=== PATIENT | female | born 1975 | race Caucasian/White ===

== ENCOUNTER 2023-11-03 16:21 | Inpatient (IN) | payer OTHER, SELFPAY ==
[2023-11-03] VITALS (10 sets, daily range): BP systolic 118–170; BP diastolic 85–103; BMI 50.3; BMI 49.7
--- NOTE | 2023-11-03 10:01 | ED.GENMED ---
History of Present Illness
General
Chief Complaint: Breathing Problem
Source: patient
Exam Limitations: none
Time Seen by Provider: 11/03/23 09:51
History of Present Illness
History of Present Illness:
48-year-old female presents with worsening congestion over 2 weeks but started to feel worse in the way of her illness about 4 days ago with significant congestion in her face and chest. She is coughing now. She has a history of asthma. She also
has a history of seasonal allergies. She has been taking Mari and a double dose of this as well as Mucinex without relief. She is concerned as she also has had pneumonia in the past. She took a COVID test at home which was negative. No other
complaints
Past History
Past History
ED Past Medical History: Asthma and Other (eczema)
Social History
Tobacco: Smoker
Personal:
Employment: Employed
Phy Exam
Physical Exam
Physical Exam:
General: HEENT: Normocephalic atraumatic. Neck is supple. Posterior pharynx without erythema or exudate TMs normal. Mucosa dry.
Heart: Tachycardic but regular
Lungs: Crackles at the bases bilaterally
Abdomen soft nontender
Extremities: No cyanosis or edema
Scores
Heart Failure Risk
Heart Failure Risk Score: Not Applicable
Course
Orders/Labs/Results
Orders:
Orders
11/03/23 10:01
0.9% Sodium Chloride 1000 ml [Nss] 1,000 ml IV BOLUS
Ipratropium/Albuterol Sulfate [Duoneb] 3 ml INH R NOW STA
CR Chest - 2 Views Urgent
Comment:
Reason For Exam: cough, sob
11/03/23 10:33
Complete Blood Count/With Diff Urgent
Comprehensive Metabolic Panel Urgent
11/03/23 13:52
COVID-19 Antigen Urgent
Source: Nasal Swab
11/03/23 14:36
Azithromycin 500 mg/250 ml [Zithromax Infusion] 500 mg in 250 ml IV NOW
CefTRIAXone [Rocephin] 1,000 mg IV NOW STA
Abnormal Lab Results
11/03/23
10:33
Hct 36.9 L %
(37.0-47.0)
MCV 77.7 L fL
(81.0-99.0)
MCH 26.5 L pg
(27.0-31.0)
RDW 14.6 H %
(11.5-14.5)
Abs Immat Gran (auto) 0.1 H 10^3/uL
(0-0.05)
Absolute Neuts (auto) 7.9 H 10^3/uL
(1.4-6.5)
Absolute Monos (auto) 1.0 H 10^3/uL
(0.1-0.6)
Immature Gran % 1.3 H %
(0-0.5)
Lymphocytes % 14.6 L %
(20.5-51.1)
Monocytes % 9.7 H %
(1.7-9.3)
Potassium 3.3 L mmol/L
(3.5-5.1)
Glucose 145 H mg/dl
(70-99)
Total Bilirubin 1.8 H mg/dl
(0.2-1.3)
11/03/23 10:33
11/03/23 10:33
Vital Signs
Initial and Last Documented VS:
Initial Vital Signs
Temp Pulse Resp BP Pulse Ox
98.7 F 120 24 158/103 93
11/03/23 09:19 11/03/23 09:19 11/03/23 09:19 11/03/23 09:19 11/03/23 09:19
Last Documented Vital Signs
Temp Pulse Resp BP Pulse Ox
98.7 F 106 27 161/88 88
11/03/23 09:19 11/03/23 13:01 11/03/23 13:01 11/03/23 13:01 11/03/23 13:01
MDM/Problems Addressed
Differential Diagnosis Includes:
Patient with cough congestion fatigue. Question upper respiratory infection versus pneumonia versus bronchitis
COVID test at home was negative.
Will check labs. Hydrate DuoNeb ordered chest x-ray pending
*Critical Care Note
Total Time (30-74mins, 75-104mins- exclusive of procedures): Not Applicable
Update Note
Update Note:
Chest x-ray performed reviewed without obvious consolidation however there are rales at the bases clinically. Patient is hypoxic here throughout her stay. She is requiring 2 L of nasal cannula oxygen. She is here with cough shortness of breath
fatigue and sweats. She has a history pneumonia. Clinically I suspect pneumonia again. Rocephin and Zithromax ordered DuoNeb ordered
ED Attending Note
-
Portions of this chart may have been created with voice recognition software.� Occasional wrong word or��sound alike� substitutions may have occurred due to the inherent limitations of voice recognition software.
Discharge Plan
Departure
Patient Disposition: Admit
Date of Disposition: 11/03/23
Time of Disposition: 14:40
Admit to: Telemetry
Presentation/result/management discussed w/ accepting MD/DO: Hospitalist
Discharge Problem:
Pneumonia
Prescriptions:
No Action
clindamycin HCl 300 MG capsule
300 mg PO QID Qty: 20 0RF
clindamycin HCl 300 MG capsule
300 mg PO TID Qty: 30 0RF
hydroxyzine HCl 25 MG tablet
25 mg PO QIDPRN PRN (Reason: itching) Qty: 12 0RF
mupirocin 1 APPLIC ointment
1 applic topical TID Qty: 15 0RF
Referrals:
Jennifer Justin MD [Family Provider] -
Interventions
Interventions:
*General Assessment Last Done: 11/03/23 11:03
*Neglect/Abuse Screening Last Done: 11/03/23 11:03
ED- Fall Risk Assessment Last Done: 11/03/23 11:03
*ED COVID-19 Vaccine History Last Done: 11/03/23 11:03
ED- Cardiac Assessment Last Done: 11/03/23 11:03
ED- Pulmonary Assessment Last Done: 11/03/23 11:03
Discharge Date and Time
Print Language: MOSOTHO
[2023-11-03] MEDS: DUONEB 3 ML INH ×4 (10:25→23:23)
[2023-11-03] MEDS: NSS 1000 IV (10:27)
[2023-11-03 10:49] LABS: % Basophils 0.4 % (0-2); % Eosinophils 0.7 % (0-6); % Immature Granulocytes 1.3 % (0-0.5); % Lymphocytes 14.6 % (20.5-51.1); % Monocytes 9.7 % (1.7-9.3); % Neutrophils 73.3 % (42.2-75.2); Absolute Eosinophils 0.1 10^3/uL (0-0.7); Absolute Immature Granulocytes 0.1 10^3/uL (0-0.05); Absolute Lymphocytes 1.6 10^3/uL (1.2-3.4); Absolute Neutrophils 7.9 10^3/uL (1.4-6.5); Hematocrit 36.9 % (37.0-47.0); Hemoglobin 12.6 g/dL (12.0-16.0); Mean Corp Hgb Conc. 34.1 g/dL (33.0-37.0); Mean Corpuscular Hgb 26.5 pg (27.0-31.0); Mean Corpuscular Volume 77.7 fL (81.0-99.0); Mean Platelet Volume 9.9 fL (7.4-10.4); Nucleated Red Blood Cells % 0 %; Platelet Count 256 10^3/uL (130-400); Red Blood Cell Count 4.75 10^6/uL (4.20-5.40); Red Cell Dist. Width 14.6 % (11.5-14.5); White Blood Cell Count 10.7 10^3/uL (4.8-10.8)
[2023-11-03 11:13] LABS: ALT (SGPT) 27 U/L (0-35); AST (SGOT) 34 U/L (14-36); Albumin 3.7 g/dl (3.5-5.0); Alkaline Phosphatase 55 U/L (38-126); Blood Urea Nitrogen 9 mg/dl (7-17); Calcium 9.1 mg/dl (8.4-10.2); Carbon Dioxide 25 mmol/L (22-30); Chloride 101 mmol/L (98-107); Estimated Creatinine Clearance > 125 ml/min; Glucose 145 mg/dl (70-99); Potassium 3.3 mmol/L (3.5-5.1); Sodium 137 mmol/L (135-145); Total Bilirubin 1.8 mg/dl (0.2-1.3); Total Protein 6.3 g/dl (6.3-8.2); eGFR > 60.00
[2023-11-03 14:24] LABS: COVID-19 Antigen Negative (Negative)
--- NOTE | 2023-11-03 14:45 | W.PN.UPDATE ---
Update Note
Progress Note Update
I personally performed a history and physical exam of the patient and discussed management with the resident. I reviewed the resident's note and agree with the documented findings and plan of care HPI/CC.
48F with PMH of asthma, morbid obesity, tobacco abuse came to ER with new onset of shortness breath and dry cough. Patient reported to have diagnosis of asthma and has not been following up with pulmonology. Patient reports of having yearly
episodes of flareup. Currently not using any inhaler therapy. Patient is current smoker and has not been smoking for last 7 days due to ongoing allergy/feeling sick. Patient noted to having slowly developing shortness of breath and got worse, dry
cough no phlegm. No reported fever. Noted to be tachycardic in ER although denies palpitations/chest pain/dizziness/presyncope.
HEENT: No pallor, cyanosis, or jaundice. Throat clear.
NECK: Supple. No JVD.
RESPIRATORY: decreased bilateral air entry, no wheezing
CVS: S1, S2 normal. RRR. No murmur, rub or gallop.
ABDOMEN: Soft, non-tender. No distension. BS+/normal.
EXTREMITIES: No peripheral cyanosis or edema.
MILK RUNNER: AOx3. No focal deficits.
Asthma Flare up
Acute hypoxic resp insufficiency
-Was having some seasonal allergies for last 2 weeks
-Have shortness of breath/borderline hypoxia and dry cough.
-CXR showed no pneumonia.
-no leukocytosis, afebrile.
-Not much air movement on exam
-will treat for asthma flare up, start on IV Decadron 4mg q8h
-Patient got dose of Rocephin and azithromycin in ER, continue on Zithromax
-Maintain on duoneb inh therapy
-Pulmonology evaluation will be required
Tobacco use
-didnt smoke for last 7 days
-smoking cessation advised
-nicotine patch/Nicorette suggested to help craving, declined
Sinus tachycardia
-asthma flare up related. monitor
-further testing if not improved post asthma rx
DVT PPX - lovenox
Full code
[2023-11-03] MEDS: ROCEPHIN 1000 MG IV (14:59)
[2023-11-03] MEDS: ZITHROMAX INFUSION 250 IV (14:59)
--- NOTE | 2023-11-03 16:40 | HPS.HSE ---
Family Physician
-
Family Physician: Jennifer Justin
Chief Complaint
-
Shortness of breath, cough
History of Present Illness
48-year-old female, Ms. Shawna Reynaga with past medical history significant for asthma, morbid obesity, tobacco use presented to the ER reporting shortness of breath and nonproductive cough that has been ongoing from the past 2 weeks, has been using
Mari/Mucinex as needed, thinking that her symptoms are due to seasonal allergies. Patient reports that SOB is more positional, patient notices and happens frequently when she lies down on bed. The symptoms have worsened since the past 4 days
requiring her to increase the frequency of using Mari, Mucinex. Patient reports that she has a history of asthma for which she carries albuterol inhaler as needed, but never required to use it in the past 1 year. Patient is a current smoker,
smokes 1 pack of cigarettes/week and she has stopped using since onset of symptoms. No history of fever/chills, lightheadedness, chest pain, palpitations, nausea/vomiting, abdominal pain, recent exposure to sick contacts, travel history,
bladder/bowel disturbances. Patient also reports having heaviness in the head/headaches. Patient reports she took a COVID test at home which was negative.
Medical History
Past Medical History
Past Medical History: Reports Asthma and Other (PCOS, GERD)
Past Surgical History: Reports Other (Ankle surgeries, ACL repair bilateral knees, endometriosis ablation, D&C,)
Social History
Tobacco: Smoker (1 pack of cigarettes/week)
Alcohol: Occasional
Drug: None
Personal:
Living: With Family
Family History
Family History: Asthma
Allergies / Home Medications
Allergies reflects when Allergies were last updated in [employer].
Home Medications with original date entered in [employer]
Allergy/Medication List:
Allergies
Allergy/AdvReac Type Severity Reaction Status Date / Time
ketorolac tromethamine Allergy Unknown Verified 11/03/23 09:21
[From Toradol]
Home Medications
fexofenadine 60 mg tablet 60 mg PO BID Allergies 11/03/23
guaifenesin 600 mg tablet, extended release 12 hr (Mucinex) 600 mg PO BID Congestion 11/03/23
Review of Systems
-
A 12 point ROS was completed and negative except as noted: Yes
Physical Exam
Vital Signs
Vital Signs
Temp Pulse Resp BP Pulse Ox
98.5 F 108 24 160/91 94
11/03/23 15:21 11/03/23 15:21 11/03/23 15:21 11/03/23 15:21 11/03/23 15:21
Physical Exam
General: Morbidly Obese and Other (Patient is on 2 L nasal cannula)
HEENT: NormoCephalic and Anicteric
Respiratory: Wheezes and Crackles
Cardiac: S1/S2, Regular Rhythm and Tachycardia
GI: Soft, Non Tender, Non Distended and Normal Bowel Sounds
Musculoskeletal: Other (Adhesive knee strap for stabilizing patella on the left side.)
Skin: Warm and Dry
Neuro: Awake, Alert, Oriented and AO x 3
Laboratory Results
-
11/03/23 10:33
11/03/23 10:33
Laboratory Results
Total Bilirubin 1.8 mg/dl (0.2-1.3) H 11/03/23 10:33
AST 34 U/L (14-36) 11/03/23 10:33
ALT 27 U/L (0-35) 11/03/23 10:33
Alkaline Phosphatase 55 U/L (38-126) 11/03/23 10:33
Data Reviewed
-
Diagnostic Radiology: Image Personally Visualized and interpreted and Report Reviewed by me
Impression/Plan
-
IMPRESSION:
Acute hypoxemic respiratory insufficiency
Tobacco use
Elevated blood pressure at presentation
PLAN:
#Acute hypoxemic respiratory insufficiency
Patient is on 2 L nasal cannula, O2 saturation at 94%.
Differentials might be acute asthma flare versus bronchitis versus pneumonia versus COPD versus viral URI
Chest x-ray revealed no evidence of pneumonia
Patient is afebrile, no elevated white count.
Patient was given a dose of Rocephin, azithromycin in ER
Continue azithromycin
Start DuoNebs
Start Symbicort
Solu-Medrol 40 mg, Q8
Pulmonology consult
#Tobacco use
Patient reports that she has not smoked from the last 7 days
Advised smoking cessation
Recommended nicotine patch/Nicorette gum�patient refused
#Elevated blood pressure at presentation
Blood pressure at 160/91
Patient is asymptomatic
Monitor
DVT prophylaxis�Lovenox 40 mg subcu
Full code
--- NOTE | 2023-11-03 18:13 | PTCARENOTE ---
Admitted into room 414-2. AOx3. CONCEPCION. SaO2 low-mid 90s on 3L NC. Sinus tachycardia on telemetry, HR 110-120s. Hypertensive, 170/97, and temperature 100.5. Dr. Lal aware. Orders received for prn hydralazine and tylenol, see MAR. Updated patient on
plan of care.
[2023-11-03] MEDS: TYLENOL 650 MG PO (18:40)
[2023-11-03] MEDS: APRESOLINE 10 MG IV (18:40)
[2023-11-03] MEDS: DECADRON 4 MG IV (18:41)
[2023-11-03] MEDS: LOVENOX 40 MG SC (18:41)
--- NOTE | 2023-11-03 18:41 | W.PN.UPDATE ---
Update Note
Progress Note Update
Patient developed fever�100.5. Started Tylenol 650 mg as needed.
Patient also had elevated blood pressure readings ranging from 170/97 to 155/85. Started on hydralazine 10 mg, q6, as needed.
[2023-11-03 19:06] LABS: Procalcitonin < 0.05 ng/ml (0.0-0.25)
[2023-11-03] MEDS: SYMBICORT 160/4.5 MCG INHALER 2 PUFF INH (19:54)
[2023-11-03] MEDS: MUCINEX 600 MG PO (20:34)
[2023-11-03] MEDS: SOLU-MEDROL PF 40 MG IV (23:51)
[2023-11-04 03:21] VITALS: BP 158/98
[2023-11-04] MEDS: DUONEB 3 ML INH ×6 (03:29→23:14)
[2023-11-04 07:00] VITALS: BP 140/89
[2023-11-04] MEDS: SYMBICORT 160/4.5 MCG INHALER 2 PUFF INH ×2 (07:13→19:44)
[2023-11-04 09:04] LABS: Hematocrit 36.8 % (37.0-47.0); Hemoglobin 12.4 g/dL (12.0-16.0); Mean Corp Hgb Conc. 33.7 g/dL (33.0-37.0); Mean Corpuscular Hgb 26.6 pg (27.0-31.0); Mean Platelet Volume 9.9 fL (7.4-10.4); Platelet Count 285 10^3/uL (130-400); Red Blood Cell Count 4.66 10^6/uL (4.20-5.40); Red Cell Dist. Width 14.9 % (11.5-14.5); White Blood Cell Count 11.5 10^3/uL (4.8-10.8)
--- NOTE | 2023-11-04 09:22 | CON.PUL ---
Consultation
Consultation Request
Date/Time Consultation Requested: 11/03/2023 - 1741
Date/Time Consultation Performed: 11/04/2023 - 857
Requesting Provider: Dr. Gena Yip
Performing Provider: Dr. Bustillos
Reason for Consultation: Asthma exacerbation/SOB
Medical History
-
Chief Complaint: SOB
History of Present Illness:
48-year-old female active tobacco smoker with a past medical history of asthma, GERD, + PCOS who presents with shortness of breath + cough x 2 days. She has tried OTC medications like Mucinex and allergy medications without relief. No fever
reported. Initial vitals in the ER showed she was afebrile to 98.7 �F, tachycardic to 120, tachypneic 24 beats minute, BP 158/103 and saturating 93% on room air. Labs showed normal WBC at 10.7, Hb 12.6, potassium 3.3, T. bili elevated at 1.8, and
COVID antigen negative. CXR showed no acute cardiopulmonary process. She was given ceftriaxone/Zithromax in the ER, IVF with NS 0.9% x 1L and DuoNebs. She was admitted to the hospitalist service and pulmonary consulted for additional
management/recommendations.
When I saw the patient she was in bed, in no acute distress, saying she feels much better since being hospitalized. She is on 2 L/min nasal cannula. She currently is smoking 0.5 PPD, and is now motivated to stop smoking. She currently denies
chest pain, MYERS, abdominal pain, fevers or chills.
PMHx: History of asthma, GERD, PCOS, retroverted uterus
PSHx: Knee surgery x6 (3x on left, 3x on right), right ankle surgery, D&C, endometriosis ablation
Past Medical History
Past Medical History: Other (Above as per HPI)
Past Surgical History: Other (Above as per HPI)
Social History
Tobacco: Smoker (Smoking on and off for the past ~30 years; has about 64-nbmr-akps Hx (0.5PPD x 20 years))
Alcohol: None
Drug: None
Living: With Family
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
Family History
Family History: Reviewed & Not Pertinent
Allergies / Home Medications
Allergies
Allergy/AdvReac Type Severity Reaction Status Date / Time
ketorolac tromethamine Allergy Unknown Verified 11/03/23 09:21
[From Toradol]
Home Medications
�Medication �Instructions �Recorded �Confirmed �Last Taken �Type
fexofenadine 60 mg tablet 60 mg PO BID Allergies 11/03/23 11/03/23 11/03/23 08:00 History
guaifenesin 600 mg tablet, 600 mg PO BID Congestion 11/03/23 11/03/23 11/03/23 History
extended release 12 hr (Mucinex)
Review of Systems
-
History Source: Patient
All other systems: Negative unless noted (12 point ROS performed and is negative unless mentioned above.)
Vitals / Labs / Diagnostic Testing
Vital Signs
Temp Pulse Resp BP Pulse Ox
97.7 F 110 18 141/84 95
11/04/23 11:00 11/04/23 11:11 11/04/23 11:11 11/04/23 11:00 11/04/23 11:11
Lab Data
11/04/23 08:49
11/04/23 08:49
Diagnostic Testing:
Physical Exam
-
HEENT: Normocephalic, Anicteric and Moist Mucous Membranes
Cardiovascular: S1/S2, Peripheral Edema (negative) and Other (Tachycardic)
Respiratory: Wheeze (negative), Rales (Bibasilar), Rhonchi and Accessory Resp Muscle Use (negative)
GI: Soft, Distended (Abdominal obesity), Non Tender and Normal Bowel Sounds
Neurology: AO x 3 and Tremors (negative)
Skin: Warm and Dry
General: Respiratory Distress (negative), Comfortable, Chills (negative) and Sweats (negative)
Assessment
-
Assessment: 48-year-old female active tobacco smoker with a past medical history of asthma, GERD, + PCOS who presents with shortness of breath + cough x 2 days. She has tried OTC medications like Mucinex and allergy medications without relief. No
fever reported. Initial vitals in the ER showed she was afebrile to 98.7 �F, tachycardic to 120, tachypneic 24 beats minute, BP 158/103 and saturating 93% on room air. Labs showed normal WBC at 10.7, Hb 12.6, potassium 3.3, T. bili elevated at
1.8, and COVID antigen negative. CXR showed no acute cardiopulmonary process. She was given ceftriaxone/Zithromax in the ER, IVF with NS 0.9% x 1L and DuoNebs. She was admitted to the hospitalist service and pulmonary consulted for additional
management/recommendations.
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
Impression:
#SOB + cough with suspected asthma exacerbation
#Acute respiratory failure with hypoxia on supplemental oxygen due to above
#Tachycardia due to above in the setting of hypoxia
#Bibasilar atelectasis
#Active tobacco use disorder with 90-esfr-xghq history (0.5 PPD x 20 years)
#Hyperglycemia
#Mildly elevated right hemidiaphragm
Plan:
- Continue with systemic steroids and wean as tolerated - currently on SoluMedrol 40mg IV q8hr
-While on systemic steroids, maintain euglycemia with goal BG >100 and <180
- Check HbA1C
- Continue LABA/ICS with Symbicort 160mcg with DuoNebs q4hr --> can change to QID today to allow pt to sleep at night
- Would add prn DuoNebs for breakthrough symptoms
- Mucolytics with mucinex
- Currently on zithromax - unclear if this is needed - would give 1.5g total and then stop
- Maintain SpO2 >90-94% with supplemental O2 - wean as tolerated
- Incentive spirometer encouraged 10x/hr for at least 4 hours a day
- Replete electrolytes with K>4, Mg>2
- Recommend outpatient follow-up with consideration of Sniff test to further evaluate elevated right hemidiaphragm
- DVT ppx: LMWH
Pulmonary service will continue to follow along. Outpatient follow-up will also be arranged for full PFTs and maintenance of her asthma.
Data:
CXR 11/03/2023: No radiographic evidence for pneumonia, pleural effusion or acute pulmonary edema. Mild elevation of the anterior right hemidiaphragm
Total time spent today was 55 minutes for this encounter. Time includes reviewing laboratory test/imaging results, reviewing pertinent medical records, obtaining and reviewing medical history, performing an appropriate exam, ordering medications,
tests and procedures. Time also includes documentation of this encounter, coordinating patient care and communicating with other healthcare professionals. Total time does not include separately billed tests performed on this date of service.
[2023-11-04] MEDS: SOLU-MEDROL PF 40 MG IV ×3 (09:26→23:24)
[2023-11-04] MEDS: MUCINEX 600 MG PO ×2 (09:26→19:45)
[2023-11-04] MEDS: PROCARDIA XL (EXTENDED RELEASE) 30 MG PO (09:26)
[2023-11-04] MEDS: ZITHROMAX 500 MG PO (09:26)
[2023-11-04 09:40] LABS: ALT (SGPT) 31 U/L (0-35); AST (SGOT) 33 U/L (14-36); Albumin 3.9 g/dl (3.5-5.0); Alkaline Phosphatase 62 U/L (38-126); Blood Urea Nitrogen 12 mg/dl (7-17); Calcium 9.5 mg/dl (8.4-10.2); Carbon Dioxide 24 mmol/L (22-30); Chloride 103 mmol/L (98-107); Estimated Creatinine Clearance > 125 ml/min; Glucose 193 mg/dl (70-99); Potassium 3.7 mmol/L (3.5-5.1); Sodium 140 mmol/L (135-145); Total Bilirubin 1.1 mg/dl (0.2-1.3); Total Protein 6.7 g/dl (6.3-8.2); eGFR > 60.00
[2023-11-04 11:00] VITALS: BP 141/84
--- NOTE | 2023-11-04 13:18 | W.PN.UPDATE ---
Update Note
Progress Note Update
I saw and evaluated the patient. I reviewed the resident�s note and agree with findings and plan as documented in the resident�s note.
Patient feeling subjectively better
O2 requirement stable and on 2-3L o2 through NC
HR remains fast.
Asthma Flare up
Acute hypoxic resp insufficiency
-Was having some seasonal allergies for last 2 weeks
-Have shortness of breath/borderline hypoxia and dry cough.
-CXR showed no pneumonia.
-no leukocytosis, afebrile.
-Not much air movement on exam in ER. subjectively better today. Provide IS.
-Patient got dose of Rocephin and azithromycin in ER, continue on Zithromax for any URTI/Bronchitis as cause of asthma flare up.
-Maintain on duoneb inh therapy
-Currently on solumedrol 40mg q8h , continue today.
-Pulmonology evaluation will be required
Tobacco use
-didnt smoke for last 7 days
-smoking cessation advised
-nicotine patch/Nicorette suggested to help craving, declined
Sinus tachycardia
-asthma flare up related. monitor
-further testing if not improved post asthma rx
Elevated BP
-no formal dx of Essential HTN, with obesity suspecting probably true dx
-avoid BB with ongoing asthma flare up
-Procardia added for BP control , will require further dose increment based on clinical response.
DVT PPX - lovenox
Full code
Total time spent : 53 mins
--- NOTE | 2023-11-04 14:49 | W.PN.HOSP.TC ---
Today's Communication/Plan
-
continue solumedrol of 40 mg q8h
f/u with pulmonology consult
Assessment / Plan
Assessment / Plan
1. Acute hypoxic respiratory failure secondary to Asthma flare up
- Patient still has coughing but reports no SOB or dyspnea
- Patient has bilateral wheezing heard on pulmonary auscultation
- On 3L of of O2 through NC
- Continue on solumedrol 40 mg, duoneb, symbicort, and mucinex
- Pulmonology consult placed 11/02- pending
2. Hypertension
- Bp was elevated above 140/90 since today morning (11/03)
- No previous history of essential hypertension
- Nifedipine 30 mg ER added
3. Tobacco use:
- declined nicotine treatment to help cessation
Anticipated Discharge: 24 - 48 hours
Subjective/Interval History
-
Date of Service: November 04, 2023
Patient reports feeling much better. Still has trouble expectorating phlegm. Last night developed a fever of 100.8, so started on tylenol 650 as needed. BP last night was elevated so hydralazine 10 mg q6 was given.
Objective Data
-
Labs:
Laboratory Results
11/04/23
08:49
WBC 11.5 H
Hgb 12.4
Hct 36.8 L
Plt Count 285
Sodium 140
Potassium 3.7
Chloride 103
Carbon Dioxide 24
BUN 12
Creatinine 0.6
Glucose 193 H
Calcium 9.5
Total Bilirubin 1.1
AST 33
ALT 31
Alkaline Phosphatase 62
Vital Signs:
Vital Signs
Temp Pulse Resp BP Pulse Ox
97.7 F 110 18 141/84 95
11/04/23 11:00 11/04/23 11:11 11/04/23 11:11 11/04/23 11:00 11/04/23 11:11
I&O
11/03/23 11/04/23 11/05/23
06:59 06:59 06:59
Intake Total 480 / 480
Balance 480 / 480
Review of Systems
-
History Source: Patient
Respiratory: Reports Cough
Physical Exam
-
General: Well Developed and Obese
HEENT: Normocephalic and Atraumatic
Respiratory: Wheezes (b/L)
Cardiac: S1/S2
GI: Soft, Nontender and Nondistended
Skin: Warm and Dry
Neuro: Awake, Alert and Oriented
Psych: Calm
Data Reviewed
-
Labs: Labs Reviewed by me and Discussed with Physician
--- NOTE | 2023-11-04 14:53 | CM ---
Patient seen bedside, initial assessment completed. Patient resides with her and daughter in a two story home, no steps to enter. Patient denies DME, VN, or SNF history. Patient currently on O2, is not on home O2. Patient PCP Jennifer Justin,
pharmacy [facility] in [place], confirms prescription coverage. Patient inquiring about a nebulizer, will TT Hospitalist for script upon discharge. CM will continue to follow for all discharge planning needs.
Plan; home no needs likely, will need script for nebulizer upon discharge.
[2023-11-04 15:52] VITALS: BP 157/99
[2023-11-04] MEDS: LOVENOX 40 MG SC (17:20)
[2023-11-04 19:30] VITALS: BP 152/86
[2023-11-04 23:30] VITALS: BP 140/83
[2023-11-05 03:30] VITALS: BP 146/86
[2023-11-05 06:44] LABS: Hematocrit 34.6 % (37.0-47.0); Hemoglobin 11.8 g/dL (12.0-16.0); Mean Corp Hgb Conc. 34.1 g/dL (33.0-37.0); Mean Corpuscular Hgb 27.6 pg (27.0-31.0); Mean Platelet Volume 10.4 fL (7.4-10.4); Platelet Count 337 10^3/uL (130-400); Red Blood Cell Count 4.27 10^6/uL (4.20-5.40); Red Cell Dist. Width 15.1 % (11.5-14.5); White Blood Cell Count 15.7 10^3/uL (4.8-10.8)
[2023-11-05 07:05] VITALS: BP 164/85
[2023-11-05] MEDS: SYMBICORT 160/4.5 MCG INHALER 2 PUFF INH ×2 (07:25→19:24)
[2023-11-05] MEDS: DUONEB 3 ML INH ×5 (07:25→23:29)
[2023-11-05 07:31] LABS: ALT (SGPT) 40 U/L (0-35); AST (SGOT) 38 U/L (14-36); Albumin 3.6 g/dl (3.5-5.0); Alkaline Phosphatase 60 U/L (38-126); Blood Urea Nitrogen 19 mg/dl (7-17); Calcium 9.8 mg/dl (8.4-10.2); Carbon Dioxide 24 mmol/L (22-30); Chloride 105 mmol/L (98-107); Estimated Creatinine Clearance > 125 ml/min; Glucose 219 mg/dl (70-99); Magnesium 2.2 mg/dl (1.6-2.3); Phosphorus 4.6 mg/dl (2.5-4.5); Potassium 4.2 mmol/L (3.5-5.1); Sodium 139 mmol/L (135-145); Total Bilirubin 0.6 mg/dl (0.2-1.3); Total Protein 6.2 g/dl (6.3-8.2); eGFR > 60.00
[2023-11-05 07:56] LABS: Glucose - Point of Care 243 mg/dl (70-99)
[2023-11-05] MEDS: NOVOLOG FLEXPEN-LOW RESISTANCE 2 UNITS SC ×2 (08:35→12:49)
[2023-11-05] MEDS: SOLU-MEDROL PF 40 MG IV ×3 (08:36→23:10)
[2023-11-05] MEDS: ZITHROMAX 500 MG PO (08:37)
[2023-11-05] MEDS: PROCARDIA XL (EXTENDED RELEASE) 30 MG PO ×2 (08:39→19:34)
[2023-11-05] MEDS: MUCINEX 600 MG PO ×2 (08:39→19:34)
--- NOTE | 2023-11-05 10:07 | W.PN.PUL3 ---
Today's Communication / Plan
-
Start weaning steroids tomorrow to 40mg IV q12hr
Up OOB as tolerated
Continue Acapella which she seems to like and helps her bring up her phlegm
Encourage use of incentive spirometer
PT consult
Keep SpO2 >90-94% --> check walking pulse ox prior to discharge as she is saturating 91% at rest and is at risk of desaturation with activity
Recommend her to get a pulse oximeter for home use for continued O2 monitoring
Outpatient follow up will be arranged for full PFTs +/- 6MWT and continued management of her asthma
Tobacco cessation is imperative
Pulmonary service to continue to follow along
Assessment
-
Assessment: 48-year-old female active tobacco smoker with a past medical history of asthma, GERD, + PCOS who presents with shortness of breath + cough x 2 days. She has tried OTC medications like Mucinex and allergy medications without relief. No
fever reported. Initial vitals in the ER showed she was afebrile to 98.7 �F, tachycardic to 120, tachypneic 24 beats minute, BP 158/103 and saturating 93% on room air. Labs showed normal WBC at 10.7, Hb 12.6, potassium 3.3, T. bili elevated at
1.8, and COVID antigen negative. CXR showed no acute cardiopulmonary process. She was given ceftriaxone/Zithromax in the ER, IVF with NS 0.9% x 1L and DuoNebs. She was admitted to the hospitalist service and pulmonary consulted for additional
management/recommendations.
Chronic conditions YARDER: History of asthma, seasonal allergies treated with Mari, GERD, PCOS, retroverted uterus, tobacco use disorder
Impression:
#SOB + cough with due to asthma exacerbation
#Acute respiratory failure with hypoxia due to above - improved, and she is now on room air
#Tachycardia due to above in the setting of hypoxia
#Bibasilar atelectasis
#Active tobacco use disorder with [id number] history (0.5 PPD x 20 years)
#Hyperglycemia
#Mildly elevated right hemidiaphragm
Plan:
- Continue with systemic steroids and wean as tolerated - currently on SoluMedrol 40mg IV q8hr
- While on systemic steroids, maintain euglycemia with goal BG >100 and <180
- Can wean down to 40mg IV q12hr tomorrow
- HbA1C: 6.2
- Continue LABA/ICS with Symbicort 160mcg with DuoNebs QID
- Continue prn DuoNebs for breakthrough symptoms
- Mucolytics with mucinex
- Nicotine patch offered, patient refused
- Tobacco cessation strongly reinforced today; discussed nicotine replacement therapy, acupuncture, hypnosis, meditation, [id number]
- Currently on zithromax - unclear if this is needed - would give 1.5g total and then stop
- Maintain SpO2 >90-94% with supplemental O2 - wean as tolerated
- Incentive spirometer encouraged 10x/hr for at least 4 hours a day
- Replete electrolytes with K>4, Mg>2
- Recommend outpatient follow-up with consideration of Sniff test to further evaluate elevated right hemidiaphragm
- DVT ppx: LMWH
Pulmonary service will continue to follow along. Outpatient follow-up will also be arranged for full PFTs and maintenance of her asthma.
Data:
CXR 11/03/2023: No radiographic evidence for pneumonia, pleural effusion or acute pulmonary edema. Mild elevation of the anterior right hemidiaphragm
Total time spent today was 35 minutes for this encounter. Time includes reviewing laboratory test/imaging results, reviewing pertinent medical records, obtaining and reviewing medical history, performing an appropriate exam, ordering medications,
tests and procedures. Time also includes documentation of this encounter, coordinating patient care and communicating with other healthcare professionals. Total time does not include separately billed tests performed on this date of service.
Subjective Data
-
Date of Service:
Date of Service: November 05, 2023
Chief Complaint: Pulmonary Follow Up
Subjective:
Patient seen and evaluated today at bedside. Patient's and patient's daughter at bedside. All questions were answered. Patient currently on room air, says she feels better but still having some chest/back tightness and she does not feel
100% yet. She currently denies chest pain, MYERS, abdominal pain, fevers or chills. She is worried that when she is discharged home that she is going to have to exert herself too much at work which may cause shortness of breath. She is also afraid
that once she encounters stress that she is going to start smoking cigarettes again.
Review of Systems
General: Other (Negative unless mentioned above)
Objective Data
Data Reviewed
Vital Signs / I&O / Oxygen:
Vital Signs
Temp Pulse Resp BP Pulse Ox
97.8 F 91 18 164/85 91
11/05/23 07:05 11/05/23 07:29 11/05/23 07:29 11/05/23 07:05 11/05/23 07:29
Intake and Output
11/04/23 11/05/23 11/06/23
06:59 06:59 06:59
Intake Total 480 / 480 1800 / 1800
Balance 480 / 480 1800 / 1800
SaO2 91
Nasal Cannula flow liters per 2
minute
Physical Exam
General: Respiratory Distress (negative), Comfortable, Chills (negative) and Sweats (negative)
HEENT: Normocephalic and Anicteric
Cardiovascular: S1-S2, Peripheral Edema (negative) and Other (Tachycardic)
Respiratory: Wheeze (negative), Rhonchi (negative), Non-Labored Respirations and Other (Coarse breath sounds heard bilaterally)
GI: Soft, Distended (Abdominal obesity), Non Tender and Normal Bowel Sounds
Neurology: AO x 3 and Tremors (negative)
Skin: Warm, Dry, Cyanosis (negative) and Jaundice (negative)
Labs/Micro/Reports
Lab Data
11/05/23 04:49
11/05/23 04:49
--- NOTE | 2023-11-05 10:07 | PN.CDI ---
CDI
- -
CDI:
Physician Documentation Request
Admit Date: 11/03/23 16:21
Dear Doctor Stephani,
Please review the following and provide your response in the progress notes.
Clinical Indicators:
#11/02 admitted Breathing Problem/Pneumonia
Pulmonary consult, 11/03
#ER showed she was afebrile to 98.7 �F,
#...tachycardic to 120, tachypneic 24 beats minute,
#...#BP 158/103 and saturating 93% on room air.
#...T. bili elevated at 1.8, and COVID antigen negative.
#She was given ceftriaxone/Zithromax in the ER, IVF with NS 0.9% x 1L and DuoNebs.
PN, 11/03
#Asthma Flare up
#Acute hypoxic resp insufficiency
#-CXR showed no pneumonia.
#...-no leukocytosis, afebrile.
#-Patient got dose of Rocephin and azithromycin in ER,
#...continue on Zithromax for any URTI/Bronchitis as cause of asthma flare up.
#-Maintain on duoneb inh therapy
Selected Entries
11/03/23
17:00
Temp 100.5 F H
Pulse 115
Resp Rate 24
Blood pressure 170/97
SaO2 94
Nasal Cannula flow liters per minute 3
Laboratory Tests
11/03/23 11/04/23 11/05/23
10:33 08:49 04:49
WBC 10.7 11.5 H 15.7 H
Total Bilirubin 1.8 H 1.1 0.6
Please clarify which of the following most accurately describes the status of the patient's diagnosis/condition and associated use of Zithromax:
Sepsis POA
Sepsis evolved during admission
Localized Infection Only, Without Systemic Illness
- indicate the site/source, such as Bronchitis, pneumonia etc.
-SIRS due to a non-infectious source
-Indicate the known or suspected etiology
-Indicate if there is associated organ dysfunction, such as renal or respiratory failure
Other(please specify)
Sepsis
- Systemic manifestations of infection, with 2 or more SIRS criteria which include:
- Fever >100.4 degrees F or hypothermia < 96.8 degrees F
- Leukocytosis - WBC > 12,000 or leukopenia - WBC < 4,000 or > 10% bands
- Tachycardia > 90 beats per minute
- Tachypnea - RR > 20 breaths per minute or PaCO2 , 32mmHg
Source: Merck Manual 2013
- Indicate the known or suspected underlying infection, such as UTI, pneumonia or cellulitis
- Indicate if a suspected bacterial infection of unknown source
Severe Sepsis
- Sepsis with associated acute organ dysfunction, such as renal or respiratory failure
- Documentation should indicate the association between the sepsis and the organ dysfunction
Use of terms such as suspected, likely, concern for, or probable (associated with a specific diagnosis that is being evaluated, monitored, or treated as if it exists) are acceptable and can be coded in the inpatient setting, when documented at the
time of discharge.
Thank you,
Jennifer Kennedy RN BSN CCDS
CDI Specialist
please contact via tiger text
Please use your independent medical judgment in providing your response.
[2023-11-05 11:00] VITALS: BP 156/94
[2023-11-05 11:32] LABS: Glycohemoglobin (HgbA1c) 6.2 % (4.0-5.6)
--- NOTE | 2023-11-05 11:44 | W.PN.HOSP.TC ---
Addendum entered and electronically signed by Hugo Lal MD 11/05/23 14:48:
I saw and evaluated the patient. I reviewed the resident�s note and agree with findings and plan as documented in the resident�s note.
Patient oxygen requirement remained stable and on 2 L nasal cannula
Asthma Flare up
Acute hypoxic resp insufficiency
-Was having some seasonal allergies for last 2 weeks
-Have shortness of breath/borderline hypoxia and dry cough.
-CXR showed no pneumonia.
-no leukocytosis, afebrile.
-Not much air movement on exam in ER. subjectively better today. Provide IS.
-Patient got dose of Rocephin and azithromycin in ER, continue on Zithromax for any URTI/Bronchitis as cause of asthma flare up.
-Maintain on duoneb inh therapy
-Currently on solumedrol 40mg q8h , continue today.
-Pulmonology evaluated and help appreciated.
Tobacco use
-didnt smoke for last 7 days
-smoking cessation advised
-nicotine patch/Nicorette suggested to help craving, declined
Sinus tachycardia
-asthma flare up related. monitor
-further testing if not improved post asthma rx
Presumed HTN
-Increase Procardia dose to 30 mg twice daily
-no formal dx of Essential HTN, with obesity suspecting probably true dx
-Avoid beta-alyx with asthma
DVT PPX - lovenox
Full code
Original Note:
Today's Communication/Plan
-
wean off oxygen
transition to oral steroids
f/u with pulmonology outpatient after discharge
Assessment / Plan
Assessment / Plan
1. Acute hypoxic respiratory failure secondary to Asthma flare up
- Patient still has coughing but reports no SOB or dyspnea
- Patient has bilateral wheezing heard on pulmonary auscultation
- Leucocytosis at 15.7, however this most likely reactive
- On 2L of of O2 through [place] (11/04), plan to wean patient off of oxygen
- Continue on solumedrol 40 mg Q8, duoneb PRN, symbicort, and mucinex
- Transition to oral steroids in the next 24-48 hours.
- Maintain the blood glucose levels between 100-180, check HbA1C, to offset the effects of steroid induced hyperglycemia
- glucose level is 219 (11/04), have patient follow up with PCP to follow Hba1c and blood glucose levels
- Incentive spirometry 10x/ hour for 4 hours a day
- Pulmonology consulted (11/03) - would like patient to follow up for PFT and asthma maintenance in office.
2. Hypertension
- Bp was elevated at 146/86 (11/04), continue the patient on procardia, and recheck the blood pressure after taking medication
- No previous history of essential hypertension
- Nifedipine 30 mg ER added (11/03)
3. Tobacco use:
- declined nicotine treatment to help cessation
Anticipated Discharge: 24 - 48 hours
Subjective/Interval History
-
Date of Service: November 05, 2023
Patient has no overnight complaints.
Objective Data
-
Labs:
Laboratory Results
11/05/23
04:49
WBC 15.7 H
Hgb 11.8 L
Hct 34.6 L
Plt Count 337
Sodium 139
Potassium 4.2
Chloride 105
Carbon Dioxide 24
BUN 19 H
Creatinine 0.7
Glucose 219 H
Calcium 9.8
Total Bilirubin 0.6
AST 38 H
ALT 40 H
Alkaline Phosphatase 60
Vital Signs:
Vital Signs
Temp Pulse Resp BP Pulse Ox
98.0 F 110 18 164/85 92
11/05/23 11:00 11/05/23 11:27 11/05/23 11:27 11/05/23 07:05 11/05/23 11:27
I&O
11/04/23 11/05/23 11/06/23
06:59 06:59 06:59
Intake Total 480 / 480 1800 / 1800
Balance 480 / 480 1800 / 1800
Review of Systems
-
History Source: Patient
Respiratory: Reports Cough and Wheezing
Physical Exam
-
General: Well Developed and Well Nourished
HEENT: Normocephalic and Atraumatic
Respiratory: Wheezes (B/L)
Cardiac: S1/S2
GI: Soft, Nontender and Nondistended
Musculoskeletal: Edema, Left Upper Extrem and Edema, Left Lower Extrem
Skin: Warm and Dry
Neuro: Awake, Alert and Oriented
Psych: Calm
Data Reviewed
-
Labs: Labs Reviewed by me and Discussed with Physician
[2023-11-05 12:08] LABS: Glucose - Point of Care 236 mg/dl (70-99)
--- NOTE | 2023-11-05 12:39 | CM ---
Addendum entered by Nayely Mina 11/05/23 14:30:
Nebulizer script faxed to [place] at [facility] [phone].
Original Note:
Patient seen bedside, reports no needs to CM at this time, reports she may be discharged tomorrow. Script can be faxed to [facility] for nebulizer or script can be written by Hospitalist upon discharge. CM will continue to follow for all discharge
planning needs.
Plan; home with family, requesting nebulizer.
[2023-11-05 15:27] VITALS: BP 138/90
[2023-11-05] MEDS: LOVENOX 40 MG SC (16:08)
[2023-11-05 16:54] LABS: Glucose - Point of Care 270 mg/dl (70-99)
[2023-11-05] MEDS: NOVOLOG FLEXPEN-LOW RESISTANCE 3 UNITS SC (17:20)
[2023-11-05 21:20] LABS: Glucose - Point of Care 325 mg/dl (70-99)
[2023-11-05 23:10] VITALS: BP 164/93
[2023-11-06 07:00] VITALS: BP 152/100
[2023-11-06 07:10] LABS: Glucose - Point of Care 218 mg/dl (70-99)
[2023-11-06 07:43] LABS: Hematocrit 36.6 % (37.0-47.0); Hemoglobin 12.2 g/dL (12.0-16.0); Mean Corp Hgb Conc. 33.3 g/dL (33.0-37.0); Mean Corpuscular Hgb 27.6 pg (27.0-31.0); Mean Corpuscular Volume 82.8 fL (81.0-99.0); Mean Platelet Volume 10.4 fL (7.4-10.4); Platelet Count 334 10^3/uL (130-400); Red Blood Cell Count 4.42 10^6/uL (4.20-5.40); Red Cell Dist. Width 14.8 % (11.5-14.5); White Blood Cell Count 18.9 10^3/uL (4.8-10.8)
[2023-11-06] MEDS: DUONEB 3 ML INH ×3 (07:43→15:20)
[2023-11-06] MEDS: SYMBICORT 160/4.5 MCG INHALER 2 PUFF INH (07:43)
[2023-11-06 07:56] LABS: ALT (SGPT) 45 U/L (0-35); AST (SGOT) 28 U/L (14-36); Albumin 3.5 g/dl (3.5-5.0); Alkaline Phosphatase 55 U/L (38-126); Blood Urea Nitrogen 22 mg/dl (7-17); Calcium 9.6 mg/dl (8.4-10.2); Carbon Dioxide 22 mmol/L (22-30); Chloride 102 mmol/L (98-107); Estimated Creatinine Clearance 117 ml/min; Glucose 231 mg/dl (70-99); Potassium 4.4 mmol/L (3.5-5.1); Sodium 140 mmol/L (135-145); Total Bilirubin 0.5 mg/dl (0.2-1.3); Total Protein 6.2 g/dl (6.3-8.2); eGFR > 60.00
[2023-11-06] MEDS: NOVOLOG FLEXPEN-LOW RESISTANCE 2 UNITS SC ×2 (08:00→11:51)
[2023-11-06] MEDS: PROCARDIA XL (EXTENDED RELEASE) 30 MG PO ×2 (08:02→10:25)
[2023-11-06] MEDS: ZITHROMAX 500 MG PO (08:03)
[2023-11-06] MEDS: SOLU-MEDROL PF 40 MG IV (08:03)
[2023-11-06] MEDS: MUCINEX 600 MG PO (08:03)
--- NOTE | 2023-11-06 09:28 | W.PN.PUL3 ---
Today's Communication / Plan
-
DC home on OCS taper starting at 50mg daily and reduce by 10mg every 4th day until off
Continue Acapella which she seems to like and helps her bring up her phlegm
Encourage use of incentive spirometer
Keep SpO2 >90-94% --> ambulatory pulse oximetry performed today shows she does not need home O2
Recommend her to get a pulse oximeter for home use for continued O2 monitoring
Outpatient follow up will be arranged for full PFTs +/- 6MWT and continued management of her asthma
Tobacco cessation is imperative
DC home on LABA/ICS with Symbicort/Breyna 160mcg with prn DuoNebs and prn albuterol MDI
Patient being prepared for discharge home today. Recommend light duty at her job for the next 2 weeks given her severe asthma exacerbation with continued dyspnea with strenuous activity and tachycardia. Doctors note written for her to show to her
job.
Pulmonary service will now sign off. Please reconsult if there are any additional questions/concerns, or if patient's respiratory status deteriorates.
Assessment
-
Assessment: 48-year-old female active tobacco smoker with a past medical history of asthma, GERD, + PCOS who presents with shortness of breath + cough x 2 days. She has tried OTC medications like Mucinex and allergy medications without relief. No
fever reported. Initial vitals in the ER showed she was afebrile to 98.7 �F, tachycardic to 120, tachypneic 24 beats minute, BP 158/103 and saturating 93% on room air. Labs showed normal WBC at 10.7, Hb 12.6, potassium 3.3, T. bili elevated at
1.8, and COVID antigen negative. CXR showed no acute cardiopulmonary process. She was given ceftriaxone/Zithromax in the ER, IVF with NS 0.9% x 1L and DuoNebs. She was admitted to the hospitalist service and pulmonary consulted for additional
management/recommendations.
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
Impression:
#SOB + cough with due to asthma exacerbation
#Acute respiratory failure with hypoxia due to above - improved, and she is now on room air
#Tachycardia due to above in the setting of hypoxia - improved
#Bibasilar atelectasis
#Active tobacco use disorder with [id number] history (0.5 PPD x 20 years)
#Hyperglycemia
#Mildly elevated right hemidiaphragm
Plan:
- Continue with systemic steroids and wean as tolerated - currently on SoluMedrol 40mg IV q12hr --> DC home on prolonged OCS taper starting at 50mg and reducing by 10mg every 4th day until off
- While on systemic steroids, maintain euglycemia with goal BG >100 and <180
- HbA1C: 6.2
- Continue LABA/ICS with Symbicort 160mcg with DuoNebs QID
- Continue prn DuoNebs for breakthrough symptoms
- She should be DC'd home on maintenance inhaler with Symbicort/Breyna 160mcg with prn DuoNebs and an albuterol MDI inhaler to be used when out of house
- Continue mucolytics with mucinex
- Nicotine patch offered, patient refused
- Tobacco cessation strongly reinforced; discussed nicotine replacement therapy, acupuncture, hypnosis, meditation, [id number]
- Last day of zithromax today to complete 1.5g total --> then stop
- Maintain SpO2 >90-94% with supplemental O2 - wean as tolerated
- Ambulatory pulse oximetry checked today with resting SaO2 93%, and rick SaO2 with ambulation 91%, with patient able to walk 220 feet
- Incentive spirometer encouraged 10x/hr for at least 4 hours a day
- Replete electrolytes with K>4, Mg>2
- Recommend outpatient follow-up with consideration of Sniff test to further evaluate elevated right hemidiaphragm
- DVT ppx: LMWH
Patient being prepared for discharge home today. Outpatient follow-up will also be arranged for full PFTs and maintenance of her asthma. Recommend light duty at her job for the next 2 weeks given her severe asthma exacerbation with continued
dyspnea with strenuous activity and tachycardia. Doctors note written for her to show to her job. Pulmonary service will now sign off. Thank you for allowing us to be involved in the care of this patient. Please reconsult if there are any
additional questions/concerns, or if patient's respiratory status deteriorates.
Data:
CXR 11/03/2023: No radiographic evidence for pneumonia, pleural effusion or acute pulmonary edema. Mild elevation of the anterior right hemidiaphragm
Total time spent today was 25 minutes for this encounter. Time includes reviewing laboratory test/imaging results, reviewing pertinent medical records, obtaining and reviewing medical history, performing an appropriate exam, ordering medications,
tests and procedures. Time also includes documentation of this encounter, coordinating patient care and communicating with other healthcare professionals. Total time does not include separately billed tests performed on this date of service.
Subjective Data
-
Date of Service:
Date of Service: November 06, 2023
Chief Complaint: Pulmonary Follow Up
Subjective:
Patient seen and evaluated today at bedside. She feels much better, is eager to go home. Still coughing up clear phlegm, and it remains non-bloody. She still feels some fatigue with exertion but is able to ambulate without significant SOB and no
chest pain. Ambulatory pulse oximetry performed today with rick SpO2 of 91% and she was able to walk 220 feet. She denies CP, MYERS, abdominal pain, nausea, fevers or chills.
Review of Systems
General: Other (Negative unless mentioned above)
Objective Data
Data Reviewed
Vital Signs / I&O / Oxygen:
Vital Signs
Temp Pulse Resp BP Pulse Ox
97.9 F 103 18 152/100 95
11/06/23 07:00 11/06/23 07:46 11/06/23 07:46 11/06/23 07:00 11/06/23 07:46
Intake and Output
11/05/23 11/06/23 11/07/23
06:59 06:59 06:59
Intake Total 1800 / 1800 720 / 720
Balance 1800 / 1800 720 / 720
SaO2 95
Nasal Cannula flow liters per 2
minute
Physical Exam
General: Respiratory Distress (negative), Comfortable, Chills (negative) and Sweats (negative)
HEENT: Normocephalic and Anicteric
Cardiovascular: S1-S2, Peripheral Edema (negative) and Other (Tachycardic)
Respiratory: Wheeze (negative), Crackles (Bilateral), Rhonchi (negative) and Non-Labored Respirations
GI: Soft, Distended (Abdominal obesity), Non Tender and Normal Bowel Sounds
Neurology: AO x 3 and Tremors (negative)
Skin: Warm, Dry, Cyanosis (negative) and Jaundice (negative)
Labs/Micro/Reports
Lab Data
11/06/23 06:11
11/06/23 06:11
--- NOTE | 2023-11-06 10:10 | CM ---
CM reviewed chart, met with patient bedside, patient for discharge today. Patient reports she is feeling much better today. CM confirmed with [facility] nebulizer will be delivered today, patient reports no one will be home until about 3:00 p.m. Update
to [facility]. Patient denies needs upon discharge. CM will continue to follow for all discharge planning needs.
Plan; home with family, nebulizer delivered through [facility].
[2023-11-06 11:42] LABS: Glucose - Point of Care 228 mg/dl (70-99)
[2023-11-06 15:49] VITALS: BP 179/102
--- NOTE | 2023-11-06 16:10 | W.PN.UPDATE ---
Update Note
Progress Note Update
I saw and evaluated the patient. I reviewed the resident�s note and agree with findings and plan as documented in the resident�s note.
Patient feeling subjectively better
O2 requirement stable and on 2-3L o2 through [place]
Asthma Flare up
Acute hypoxic resp insufficiency - resolved
-Was having some seasonal allergies for last 2 weeks
-Have shortness of breath/borderline hypoxia and dry cough.
-CXR showed no pneumonia.
-no leukocytosis, afebrile.
-Patient got dose of Rocephin and azithromycin in ER, finished short course of zithromax.
-Maintain on duoneb inh therapy
-Patient able to be weaned off of oxygen. Ambulatory oxygen test negative
-Discharged on taper course of oral steroids/DuoNeb therapy
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
Tobacco use
-did not smoke for last 7 days
-smoking cessation advised
-nicotine patch/Nicorette suggested to help craving, declined
Sinus tachycardia
-asthma flare up related. monitor
-further testing if not improved post asthma rx
Essential HTN - presumed
-no formal dx of Essential HTN, with obesity suspecting probably true dx
-avoid BB with ongoing asthma flare up
-Increase Procardia dose to 60 mg twice daily
Pre-diabetes
-Hbga1c of 7.2
-started on oral metformin bid
-Educated on diabetic diet/weight loss
DVT PPX - lovenox
Full code
--- NOTE | 2023-11-06 17:06 | W.DCSUMMARY ---
Discharge Summary
Discharge Data
Date of Admission: 11/03/23
Date of Discharge: 11/06/23
-
Pending Results: No
Hospital Course
Discharging Physician : Hugo Rangel & Orlin Ramirez
Disposition : home
Primary care physician : Jennifer Nunez
Principal Discharge diagnosis : Acute hypoxemic respiratory insufficiency secondary to asthma flare up
Chronic Discharge diagnosis : pre diabetes, hypertension, tobacco use
Hospital Course : 11/03/2023- 48 year old female with a past medical history of asthma, morbid obesity, tobacco use, eczema presents to the ED with shortness of breath and dry cough. She has similar presentation every year due to asthma flare up and
being inconsistent with inhaler use ( which is according to her). She is a current smoker. no fever, pulse- 120, bp - 158/83. She denies chest pain, palpitations, dizziness, syncope. home covid test negative Chest xray negative for
pneumonia. Started on Decadron 4 mg q8h, got Rocephin and Azithromycin, DuoNeb, and pulmonology evaluation. on 11/04/2023- Feels much better on being hospitalized, on 2L [place], BP still elevated at 141/84, labs show potassium at 3.3. Continued on
solumedrol 40 mg q8h, duoneb, and zithromax. Procardia 30 mg is added for bp control. Pulmonology consult put in. on 11/05/2023 - finished zithromax and discharged on oral steroids. WBC still elevated (at 18.9) but likely reactive due to steroid
use.Dose of steroids tapered to 40 mg IV q12 today. Procardia dose increased to 60 mg bid for elevated bp at 152/100, advised to follow up with pcp. Metformin 500 bid started for elevated blood glucose and HbA1c, lifestyle modifications and diet
discussed. Ambulatory oxygen test negative. Patient declined nicotine patch.
Important imaging findings :
Chest Xray- 11/03/23
IMPRESSION:
1. No radiographic evidence for pneumonia, pleural effusion, or acute pulmonary edema.
2. Mild elevation of the anterior right hemidiaphragm.
Procedure findings :
Discharge Plan
-
Patient Disposition: Home (Routine Discharge)
Discharge Diagnosis/Procedures: Asthma flare up, Pre-diabetes, HTN
Condition: Fair
Diet: Diabetic, Carb Controlled
Activity: As tolerated
Driving Restrictions: As prior to admission
Bathing Restrictions: OK to Shower
Referrals:
Harrison Bustillos MD [Active] - in four to six weeks (with full PFTs on day of office visit)
Jennifer Justin MD [Family Provider] - in one week
Prescriptions:
New
metformin 500 mg Tablet
500 mg PO BID@0800,1700 Qty: 60 0RF
nifedipine 60 mg Tablet Extended Release
60 mg PO BID Qty: 60 0RF
ipratropium-albuterol 0.5 mg-3 mg(2.5 mg base)/3 mL solution for nebulization
3 ml inhalation Q8H PRN (Reason: shortness of breath) Qty: 90 1RF
albuterol sulfate 90 mcg/actuation aerosol powdr breath activated
2 inh inhalation Q6H PRN (Reason: shortness of breath or wheezing) Qty: 1 0RF
prednisone 10 mg Tablet
See Rx Instructions .ROUTE .COMPLEX Qty: 30 0RF
Rx Instructions:
Take By Mouth:
40 mg daily x3 days, 30 mg daily x3 days,
20 mg daily x3 days, 10 mg daily x3 days.
Continued
guaifenesin [Mucinex] 600 mg Tablet Extended Release 12hr
600 mg PO BID
fexofenadine 60 mg Tablet
60 mg PO BID
Discharge Orders:
Discharge Patient (As Directed); Ordered 11/06/23
Ordered By: Hugo Lal
Discharge Date and Time
Discharge Date/Time: 11/06/23 16:47
Print Language: TAIWANESE
--- NOTE | 2023-11-06 17:08 | W.PN.HOSP.TC ---
Today's Communication/Plan
-
discharge patient today
F/u with PCP regarding HTN and HbA1c levels
F/U with pulmonology outpatient
Assessment / Plan
Assessment / Plan
1. Acute hypoxic respiratory failure secondary to Asthma flare up
- Patient feels better, coughing, able to expectorate some sputum
- Patient has right sided wheezing heard on the lower lobe on pulmonary auscultation
- Recommend saline nasal spray for dry nose
- Leucocytosis at 18.9 ( trending up), however this most likely reactive
- Patient is on 93% O2 on room air, ambulatory oxygen test negative
- Continue on duoneb PRN, symbicort, and mucinex- however she is being weaned off steroids, doseage changed to 40 mg IV q12
- Maintain the blood glucose levels between 100-180, check HbA1C, to offset the effects of steroid induced hyperglycemia
- glucose level is 231 (11/05), have patient follow up with PCP to follow Hba1c and blood glucose levels
- Incentive spirometry 10x/ hour for 4 hours a day
- Pulmonology consulted (11/04) - would like patient to follow up for PFT and asthma maintenance in office.
2. Pre- diabetes:
- Patient blood glucose 231 (11/05), HbA1c 6.2 (11/04)
- Metformin 500 mg BID ordered (11/05)
- Lifestyle changes recommended like losing 5-10 pounds, having smaller meal portions, eating more protein/ less carbs, avoiding fast digesting carbs like white bread rice etc
3. Hypertension
- Bp was elevated at 152/100 (11/05), continue the patient on procardia, and recheck the blood pressure after taking medication
- No previous history of essential hypertension,
- Nifedipine 30 mg ER added (11/03) --> changed to Procardia 60 mg twice daily
4. Tobacco use:
- declined nicotine treatment to help cessation
Anticipated Discharge: Today
Subjective/Interval History
-
Date of Service: November 06, 2023
Pt has a dry nose from the oxygen therapy and wants to find a treatment.
Objective Data
-
Labs:
Laboratory Results
11/06/23
06:11
WBC 18.9 H
Hgb 12.2
Hct 36.6 L
Plt Count 334
Sodium 140
Potassium 4.4
Chloride 102
Carbon Dioxide 22
BUN 22 H
Creatinine 0.8
Glucose 231 H
Calcium 9.6
Total Bilirubin 0.5
AST 28
ALT 45 H
Alkaline Phosphatase 55
Vital Signs:
Vital Signs
Temp Pulse Resp BP Pulse Ox
97.7 F 107 20 179/102 93
11/06/23 15:49 11/06/23 15:49 11/06/23 15:49 11/06/23 15:49 11/06/23 15:49
I&O
11/05/23 11/06/23 11/07/23
06:59 06:59 06:59
Intake Total 1800 / 1800 720 / 720
Balance 1800 / 1800 720 / 720
Review of Systems
-
History Source: Patient
Respiratory: Reports Cough
Physical Exam
-
General: Morbidly Obese
HEENT: Normocephalic and Atraumatic
Respiratory: Wheezes (Rt sided wheezes)
Cardiac: S1/S2
GI: Soft, Nontender and Nondistended
Musculoskeletal: Edema, Right Lower Extrem and Edema, Left Lower Extrem
Skin: Warm and Dry
Neuro: Awake and Alert
Psych: Calm
Data Reviewed
-
Labs: Labs Reviewed by me and Discussed with Physician
[2023-11-06 18:45] LABS: IgE 767 kU/L (<=214)
== END 2023-11-06 16:47 | disposition home or self-care (01) | DRG 202 ==
LOC: 4 WEST ACU 16:21
PROVIDERS: Physician Assistant; Student in an Organized Health Care Education/Training Program; ADMITTING PHYSICIAN Hospitalist; EMERGENCY PHYSICIAN Emergency Medicine; FAMILY PHYSICIAN Family Medicine; OTHER PHYSICIAN Internal Medicine Critical Care Medicine
DX: J45.901 Unspecified asthma with (acute) exacerbation (principal); J98.11 Atelectasis; Z68.42 Body mass index [BMI] 45.0-49.9, adult; J30.2 Other seasonal allergic rhinitis; L30.9 Dermatitis, unspecified; F17.210 Nicotine dependence, cigarettes, uncomplicated; E66.01 Morbid (severe) obesity due to excess calories; R09.02 Hypoxemia; R06.89 Other abnormalities of breathing; E28.2 Polycystic ovarian syndrome; K21.9 Gastro-esophageal reflux disease without esophagitis; R00.0 Tachycardia, unspecified; R73.03 Prediabetes; I10 Essential (primary) hypertension; N85.4 Malposition of uterus; D72.829 Elevated white blood cell count, unspecified; R73.9 Hyperglycemia, unspecified; T38.0X5A Adverse effect of glucocorticoids and synthetic analogues, initial encounter; Y92.9 Unspecified place or not applicable; Z88.8 Allergy status to other drugs, medicaments and biological substances; Z11.52 Encounter for screening for COVID-19; Z87.01 Personal history of pneumonia (recurrent)
CPT/HCPCS: 71046; 80053; 82785; 82962; 83036; 83735; 84100; 84145; 85025; 85027; 87811; 94640; 96361; 96374; 96375; 99285

== ENCOUNTER 2023-11-07 20:32 | Emergency (ER) | payer OTHER, SELFPAY ==
[2023-11-07 20:34] VITALS: BP 153/100
[2023-11-07 20:53] VITALS: BMI 50.3
[2023-11-07 20:57] VITALS: BP 120/80
--- NOTE | 2023-11-07 21:13 | ED.GENMED ---
History of Present Illness
General
Chief Complaint: Ear Problem
Source: patient
Exam Limitations: none
Time Seen by Provider: 11/07/23 20:59
History of Present Illness
History of Present Illness:
This is a 48 year old female that comes in with c/o left ear pain. States that she was just discharged from the hospital yesterday. States that last night she felt like the ear was draining and today she felt that it was swollen and irritated.
States that she is still SOB. Denies any fever, chills, chest pain, abd pain, nausea, vomiting, diarrhea, headache, dizziness, urinary burning.
Past History
Past History
ED Past Medical History: Asthma, HTN, NIDDM and Other (eczema, PCOS, Endometriosis)
ED Past Surgical History: Orthopedic (Ankle surgery, Right knee surgery 3 times, Left knee surgery 3 times. )
Social History
Tobacco: Former smoker
Alcohol: None
Personal:
Living: with family
Employment: Employed
Review of Systems
Review of Systems
All Other Systems: ROS reviewed and negative except as documented in HPI and ROS
Constitutional: Reports no symptoms; Denies fever or chills
EENT: Reports other (Left ear pain)
Respiratory: Reports cough and trouble breathing
Cardiac: Reports no symptoms; Denies chest pain
ABD/GI: Reports no symptoms; Denies abdominal pain, nausea, vomiting or diarrhea
: Reports no symptoms; Denies dysuria, frequency or urgency
Musculoskeletal: Reports no symptoms
Skin: Reports no symptoms
Neurological: Reports no symptoms; Denies dizzy or headache
Psychiatric: Reports no symptoms
Phy Exam
General Physical Exam
General Presentation: well appearing and no apparent distress
General age: appears stated age
General Skin: warm and dry
General Habitus: normal and obese
General Mental: alert
General Hydration: appears well hydrated
ENT Exam
ENT Exam: TM's normal, pharynx normal, neck supple and other (Left ear negative for any drainage, redness or swelling)
Eye Exam
Eye Exam: EOMI
Cardiovascular Exam
Cardiovascular Exam: regular rate/rhythm
Pulmonary Exam
Pulmonary Exam: generalized wheezing (Exp wheezing throughout)
Musculoskeletal Exam
Musculoskeletal Exam: full ROM
Skin Exam
Skin Exam: normal color, warm/dry, no rash and no petechia
Psychiatric Exam
Psychiatric Exam: normal mood/affect
Course
Vital Signs
Initial and Last Documented VS:
Initial Vital Signs
Temp Pulse Resp BP Pulse Ox
97.8 F 107 19 153/100 95
11/07/23 20:34 11/07/23 20:34 11/07/23 20:34 11/07/23 20:34 11/07/23 20:34
Last Documented Vital Signs
Temp Pulse Resp BP Pulse Ox
97.8 F 103 20 120/80 93
11/07/23 20:57 11/07/23 20:57 11/07/23 20:57 11/07/23 20:57 11/07/23 20:57
MDM/Problems Addressed
Differential Diagnosis Includes:
ear congestion
MDM/Problems Addressed:
This is a 48 year old female that comes in with c/o left ear pain.
Explained to patient that the ear is normal. There is no swelling or drainage noted. Patient is taking Prednisone and is on antibiotics. Patient is taking Mari. Explained that this will help with any ear pressure. Patient to return with any
concerns.
Chronic conditions affecting care: Asthma
Acute Exacerbation and/or Progression of Chronic Illness: Asthma
*Pulse Oximetry
Patient hypoxic: no
*EKG
Interpreted by ED Provider?: NA
Rate: EKG- N/A
*Console Assembler Interpretation
Rate: Console Assembler- N/A
*Critical Care Note
Total Time (30-74mins, 75-104mins- exclusive of procedures): Not Applicable
ED Attending Note
-
Portions of this chart may have been created with voice recognition software.� Occasional wrong word or��sound alike� substitutions may have occurred due to the inherent limitations of voice recognition software.
Discharge Plan
Departure
Patient Disposition: Home (Routine Discharge)
Date of Disposition: 11/07/23
Time of Disposition: 21:23
Patient with high blood pressure during this ER visit?: No
Condition: Good
Covid-19: Not Applicable
Discharge Problem:
ear check
Prescriptions:
No Action
guaifenesin [Mucinex] 600 mg Tablet Extended Release 12hr
600 mg PO BID
fexofenadine 60 mg Tablet
60 mg PO BID
metformin 500 mg Tablet
500 mg PO BID@0800,1700 Qty: 60 0RF
nifedipine 60 mg Tablet Extended Release
60 mg PO BID Qty: 60 0RF
ipratropium-albuterol 0.5 mg-3 mg(2.5 mg base)/3 mL solution for nebulization
3 ml inhalation Q8H PRN (Reason: shortness of breath) Qty: 90 1RF
albuterol sulfate 90 mcg/actuation aerosol powdr breath activated
2 inh inhalation Q6H PRN (Reason: shortness of breath or wheezing) Qty: 1 0RF
prednisone 10 mg Tablet
See Rx Instructions .ROUTE .COMPLEX Qty: 30 0RF
Rx Instructions:
Take By Mouth:
40 mg daily x3 days, 30 mg daily x3 days,
20 mg daily x3 days, 10 mg daily x3 days.
Activity Restrictions/Additional Instructions:
As discussed, there is no sign of infection or any swelling. Please continue with the medication that you have been prescribed. Follow up with the family doctor for recheck. IF YOU HAVE ANY OTHER CONCERNS PLEASE RETURN TO THE EMERGENCY ROOM.
Interventions
Interventions:
*Risk Screen - Suicide Last Done: 11/07/23 20:51
*General Assessment Last Done: 11/07/23 20:51
*Neglect/Abuse Screening Last Done: 11/07/23 20:51
*ED COVID-19 Vaccine History Last Done: 11/07/23 20:51
Discharge Date and Time
Print Language: ERITREAN
== END 2023-11-07 21:30 | disposition home or self-care (01) ==
LOC: EMR 20:32
PROVIDERS: EMERGENCY PHYSICIAN Emergency Medicine; FAMILY PHYSICIAN Family Medicine
DX: H92.02 Otalgia, left ear (principal); I10 Essential (primary) hypertension; J45.909 Unspecified asthma, uncomplicated; E11.9 Type 2 diabetes mellitus without complications; L30.9 Dermatitis, unspecified; E28.2 Polycystic ovarian syndrome; N80.9 Endometriosis, unspecified; Z87.891 Personal history of nicotine dependence
CPT/HCPCS: 99282